=== PATIENT | male | born 1960 | race Caucasian/White ===

== ENCOUNTER 2018-08-22 12:21 | Outpatient (CLI) | payer OTHER | END 2018-08-22 12:26 | disposition home or self-care (01) | LOC: SONOGRAMA 12:21 → MAMO-SONO 13:15 | DX: M25.511 Pain in right shoulder (principal) ==

== ENCOUNTER 2019-05-27 21:42 | Emergency (ER) | payer OTHER ==
[~2019-05-27] VITALS: Ht 157.5 cm; Wt 63.5 kg
[2019-05-27] MEDS ORDERED: SYNTHROID75 MCG (21:56)
[2019-05-27] MEDS ORDERED: ZESTRIL40 M1 (21:56)
[2019-05-27] MEDS ORDERED: DIVALPROEX SOD250 M1 (21:57)
[2019-05-27] MEDS ORDERED: ASPIR 8181 MG (21:57)
[2019-05-27] MEDS ORDERED: NEURONTIN300 MG (21:57)
[2019-05-27] MEDS ORDERED: FENOFIBRATE160 MG (21:57)
[2019-05-27] MEDS ORDERED: NORVASC5 MG (21:57)
[2019-05-27] MEDS ORDERED: ALENDRONATE SOD70 MG (21:58)
== END 2019-05-28 02:39 | disposition designated cancer center or children's hospital (05) ==
LOC: ER 21:42
DX: T81.49XA Infection following a procedure, other surgical site, initial encounter (principal); L03.115 Cellulitis of right lower limb